=== PATIENT | female | born 1980 | race Caucasian/White ===

== ENCOUNTER 2017-10-22 14:16 | Emergency (ER) | payer OTHER ==
[~2017-10-22] VITALS: Ht 149.9 cm; Wt 83.5 kg
[~2017-10-22 14:16] MED LIST: ARIP15 PO; ASPI325 PO; AZIT250 PO; Atarax10 MG PO; CHOL10002; CLIN300 PO; Crutch1 EACH MISC; Daily Multiple1 EACH PO; ERYES400 PO; HYDACE5 PO; MULVITMINE PO; Mobic15 MG PO; NAPR550 PO; OLAN5 PO; PROM25 PO; PROM25S PR; Percocet 7.5-31 EACH PO; TRAZ50; Zofran Odt4 MG SL
[2017-10-22] MEDS ORDERED: QUET25 PO (14:22)
[2017-10-22] MEDS ORDERED: ARIP10 (14:22)
== END 2017-10-22 15:43 | disposition home or self-care (01) ==
LOC: ER 14:16
DX: S80.02XA Contusion of left knee, initial encounter (principal); Z88.0 Allergy status to penicillin; Z88.1 Allergy status to other antibiotic agents; Z79.899 Other long term (current) drug therapy; F17.210 Nicotine dependence, cigarettes, uncomplicated; W10.9XXA Fall (on) (from) unspecified stairs and steps, initial encounter
CPT/HCPCS: 73564; 96372; 99283-25; J1885